=== PATIENT | male | born 1985 | race Caucasian/White ===

== ENCOUNTER 2019-05-05 14:59 | Emergency (ER) | payer OTHER ==
[~2019-05-05] VITALS: Ht 170.2 cm; Wt 87.5 kg
[2019-05-05 15:15] VITALS: Ht 170.2 cm; Wt 87.5 kg
[2019-05-05 16:08] VITALS: BP 145/78
== END 2019-05-05 16:08 | disposition home or self-care (01) ==
LOC: ED 14:59
DX: T23.271A Burn of second degree of right wrist, initial encounter (principal); T22.211A Burn of second degree of right forearm, initial encounter; T31.0 Burns involving less than 10% of body surface; X77.2XXA Intentional self-harm by other hot fluids, initial encounter; Y93.G3 Activity, cooking and baking; Y92.000 Kitchen of unspecified non-institutional (private) residence as the place of occurrence of the external cause; Y99.8 Other external cause status
CPT/HCPCS: 90715